=== PATIENT | male | born 1995 | race African-American/Black ===

== ENCOUNTER 2017-11-15 22:02 | Emergency (ER) | payer SELFPAY ==
[~2017-11-15] VITALS: Ht 188 cm; Wt 99.8 kg
[2017-11-15 23:15] VITALS: BP 147/93
== END 2017-11-16 01:37 | disposition admitted as inpatient to this hospital (09) ==
LOC: ERH 22:02
DX: S91.114A Laceration without foreign body of right lesser toe(s) without damage to nail, initial encounter (principal)